=== PATIENT | male | born 1975 | race Caucasian/White ===

== ENCOUNTER 2019-01-22 09:42 | Emergency (ER) | payer OTHER ==
[~2019-01-22] VITALS: Ht 180.3 cm; Wt 104.3 kg
[~2019-01-22 09:42] MED LIST: ASPIRIN325 PO; ZYVOX600 MG PO
[2019-01-22 10:24] LABS: URINE BILIRUBIN NEGATIVE (Negative); URINE BLOOD 1+ (Negative); URINE CLARITY CLEAR; URINE COLOR YELLOW; URINE GLUCOSE-RANDOM NEGATIVE (Negative); URINE KETONES NEGATIVE (Negative); URINE LEUKOCYTES-REFLEX NEGATIVE (Negative); URINE NITRITE-REFLEX NEGATIVE (Negative); URINE PROTEIN 1+ (Negative)
[2019-01-22 10:49] LABS: HEMATOCRIT 30.3 % (42.0-52.0); HEMOGLOBIN 10.7 gm/dL (14.0-18.0); MCH 27.5 pg (26.0-34.0); MCHC 35.2 g/dL (28.0-37.0); MCV 78.1 fL (80.0-100.0); MPV 7.3 fl. (7.2-11.1); NUCLEATED RBCS 0 /100WBC; PLATELET COUNT* 814 thou/uL (150-400); RBC 3.88 mil/uL (4.50-6.00); RDW-CV 16.5 % (10.5-14.5); WBC 27.4 thou/uL (4.0-11.0)
[2019-01-22 10:52] LABS: BACTERIA-REFLEX 1-9 Few /HPF (None Seen); CASTS None Seen /LPF (None Seen); CRYSTALS None Seen /LPF (None Seen); MUCUS >6 Heavy strn/LPF (None Seen); SQUAMOUS 4-10 Moderate /LPF (0-3); URINE RBC 3-10 Few /HPF (0-2); URINE WBC-REFLEX 0-5 Rare /HPF (0-5)
[2019-01-22 11:01] LABS: ANION GAP 10 mmol/L (7-16); BUN 12 mg/dL (7-18); CALCIUM 8.4 mg/dL (8.5-10.1); CHLORIDE 95 mmol/L (98-107); CO2 28 mmol/L (21-32); CREATININE 1.2 mg/dL (0.6-1.3); GLUCOSE 110 mg/dL (70-99); SODIUM 133 mmol/L (136-145)
[2019-01-22 11:07] LABS: POTASSIUM 2.7 mmol/L (3.5-5.1)
[2019-01-22 11:15] LABS: ALBUMIN 1.9 g/dL (3.4-5.0); ALKALINE PHOSPHATASE 92 U/L (46-116); SGOT 31 U/L (15-37); SGPT 29 U/L (30-65); TOTAL BILIRUBIN 0.8 mg/dL (<0.1-1.0); TOTAL PROTEIN 7.5 g/dL (6.4-8.2); TROPONIN-I LEVEL <0.06 ng/mL (<0.06)
[2019-01-22 11:16] LABS: APTT 30.6 Seconds (25.0-31.3); INR 1.4; PROTIME 14.1 Seconds (9.20-11.50)
[2019-01-22 11:24] LABS: ABSOLUTE EOSINOPHILS 0.3 thou/uL (0.0-0.7); ABSOLUTE LYMPHOCYTES 6.3 thou/uL (0.8-5.3); ABSOLUTE MONOCYTES 1.4 thou/uL (0.0-1.2); ABSOLUTE NEUTROPHILS 19.5 thou/uL (1.6-8.1); PLATELET ESTIMATE ADEQUATE
[2019-01-22 11:46] LABS: AMP/METHAMP Negative (Negative); BARBITURATES Negative (Negative); BENZODIAZEPINES Negative (Negative); COCAINE Negative (Negative); METHADONE Negative (Negative); OPIATES POSITIVE (Negative); PCP Negative (Negative); THC Negative (Negative)
[2019-01-22 15:01] VITALS: BP 104/77
--- NOTE | 2019-01-22 16:57 | EKG ---
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: : 1975 Requested By: Melissa Mulligan Order Number: [id number] MD: Kd Jacinto Measurements Intervals [place] Rate: 106 P: 19 [place]: 153 QRS: 10 QRSD: 101 T: 28 QT: 328 QTc: 436 Interpretive Statements Sinus tachycardia Abnormal R-wave progression, early transition Baseline wander in lead(s) II Compared to ECG 10/04/2016 15:16:03 No significant changes Electronically Signed On 01-22-2019 16:57:06 CDT by Kd Jacinto [email or web address] <ELECTRONICALLY SIGNED> By: Kd Jacinto MD, [facility] 01/22/19 [id number] Kd Jacinto MD, [facility] /EPI
== END 2019-01-22 15:08 | disposition short-term general hospital (02) ==
LOC: M.ERS 09:42
PROVIDERS: Physician Assistant
DX: S32.048A Other fracture of fourth lumbar vertebra, initial encounter for closed fracture (principal); A41.9 Sepsis, unspecified organism; A18.01 Tuberculosis of spine; M86.18 Other acute osteomyelitis, other site; E87.6 Hypokalemia; F17.210 Nicotine dependence, cigarettes, uncomplicated; Z79.899 Other long term (current) drug therapy; Z86.14 Personal history of Methicillin resistant Staphylococcus aureus infection; Z79.1 Long term (current) use of non-steroidal anti-inflammatories (NSAID); X58.XXXA Exposure to other specified factors, initial encounter; Y93.89 Activity, other specified; Y92.89 Other specified places as the place of occurrence of the external cause; Y99.8 Other external cause status